=== PATIENT | female | born 1940 | race Caucasian/White ===

== ENCOUNTER 2018-10-12 13:16 | Inpatient (IN) | payer MEDICARE ==
[~2018-10-12] VITALS: Ht 162.6 cm; Wt 98.0 kg
[2018-10-12] MEDS ORDERED: NITROGLYCERIN 2% OINT 1 GM PKT ONE (13:31)
[2018-10-12] MEDS ORDERED: NITROGLYCERIN 2% OINT 1 GM PKT TOP ONE (13:45)
[2018-10-12 14:40] LABS: BILIRUBIN,URINE NEGATIVE (NEGATIVE); CLARITY,URINE SL CLOUDY (CLEAR); COLOR,URINE YELLOW (YELLOW); KETONES,URINE NEGATIVE (NEGATIVE); LEUKOCYTE ESTERASE ,URINE TRACE (NEGATIVE); NITRITE,URINE NEGATIVE (NEGATIVE); PROTEIN,URINE DIPSTICK NEGATIVE (NEGATIVE); URINE UROBILINOGEN 0.2 mg/dL (0.2 - 1)
[2018-10-12 14:52] LABS: RBC,URINE 0-5 /HPF (0-5); RENAL EPITHELIAL CELLS,URINE FEW; WBC,URINE (MAN) 0-5 /HPF (0-5)
--- NOTE | 2018-10-12 15:05 | Diagnostic Imaging Report ---
Examination: Single AP view of the chest. COMPARISON: None. INDICATION: Shortness of breath DISCUSSION: The lungs are well-inflated. Small right pleural effusion with adjacent lower and middle lobe airspace disease, likely atelectasis. Enlargement of the cardiac silhouette with prominence of the perihilar pulmonary interstitium, right greater than left. No acute osseous abnormality. IMPRESSION: Cardiomegaly with findings suggestive of interstitial pulmonary edema and small associated right pleural effusion. Right hilar fullness may reflect asymmetric pulmonary edema; however, a follow-up chest radiograph in 4-6 weeks is suggested to document resolution. Signed by: Dr. Yasir Vidales M.D. on 10/12/2018 3:02 PM
--- NOTE | 2018-10-12 15:22 | NUR ---
NITRO PASTE-- 1" PLACED FOR BP OF 200/139
[2018-10-12 15:30] LABS: BASOPHILS % 0.3 % (0.0-1.0); EOSINOPHILS # (AUTO) 0.1 (0.0-0.4); EOSINOPHILS % 1.2 % (0.0-6.0); HEMATOCRIT 43.9 % (34.2-44.1); LYMPHOCYTES # (AUTO) 0.9 (1.0-3.2); LYMPHOCYTES % 14.1 % (18.0-39.1); MEAN CORPUSCULAR HEMOGLOBIN 31.7 pg (28-32); MEAN CORPUSCULAR HGB CONC 31.9 g/dL (31-35); MEAN CORPUSCULAR VOLUME 99.3 fL (81-99); MONOCYTES # (AUTO) 0.7 (0.2-0.8); MONOCYTES % 9.7 % (4.4-11.3); NEUTROPHILS % 74.3 % (38.7-80.0); PLATELET COUNT 166 x10e3/uL (140-360); RED BLOOD COUNT 4.42 x10e6/uL (3.6-5.1); RED CELL DISTRIBUTION WIDTH 14.8 % (11.7-14.4)
[2018-10-12 15:46] LABS: INR 1.06; PROTHROMBIN TIME 14.3 seconds (11.9-14.5)
[2018-10-12 15:47] LABS: PARTIAL THROMBOPLASTIN TIME 27.4 seconds (23.8-35.5)
[2018-10-12 15:58] LABS: ALBUMIN 3.4 g/dL (3.5-5.0); ALBUMIN/GLOBULIN RATIO 0.8 (0.8-2.0); ANION GAP 13.6 mmol/L (8-16); CALCIUM 9.5 mg/dL (8.4-10.2); CREATININE, SERUM 0.94 mg/dL (0.57-1.11); MAGNESIUM 1.8 MG/DL (1.3-2.1); POTASSIUM 3.6 mmol/L (3.5-5.1)
[2018-10-12] MEDS ORDERED: ENALAPRILAT IV INJ 1.25 MG/ML VIAL IV ONE (16:03)
[2018-10-12 16:05] LABS: CREATINE KINASE MB 1.2 ng/mL (0-5.0)
[2018-10-12] MEDS: ENOXAPARIN SODIUM INJ 100 MG/ML SYR SC SCH ×2 (16:38→17:57)
--- NOTE | 2018-10-12 16:38 | NUR ---
TOLERATING BIPAP VERY WELL. BP STILL ELEVATED. MEDS GIVEN
[2018-10-12] MEDS ORDERED: MORPHINE SULFATE 2 MG/ML SYR 1ML IV PRN (17:00)
[2018-10-12] MEDS ORDERED: ONDANSETRON HCL INJ 2MG/ML 2ML 2 MG/ML VIAL IV PRN (17:00)
--- OUTSIDE RECORDS SUMMARY | 2018-10-12 17:25 | XMS REPORT ---
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 Allergies, Adverse Reactions, Alerts This patient has no known allergies or adverse reactions. Medications This patient has no known medications. Results Test Description Test Time Test Comments Text Results Atomic Results Result Comments CHEST SINGLE (PORTABLE) 2018-10-12 15:00:00 [place] [address] Patient Name: ERASMO AHN MR #: [id number] : 1940 Age/Sex: 78/F Req #: [id number] Adm Physician: Ordered by: EM MARTINEZ MD Report #: [id number] Location: ER Room/Bed: Procedure: [id number] DX/CHEST SINGLE (PORTABLE) Exam Date: 10/12/18 Exam Time: 1440 REPORT STATUS: Signed Examination: Single AP view of the chest. ELISHA RISON: None. INDICATION: Shortness of breath DISCUSSION: The lungs are well-inflated. Small right pleural effusion with adjacent lower and middle lobe airspace disease, likely atelectasis. Enlargement of the cardiac silhouette with prominence of the perihilar pulmonary interstitium, right greater than left. No acute osseous abnormality. IMPRESSION: Cardiomegaly with findings suggestive of interstitial pulmonary edema and small associated right pleural effusion. Right hilar fullness may reflect asymmetric pulmonary edema; however, a follow-up chest radiograph in 4-6 weeks is suggested to document resolution. Signed by: Dr. Barak Muro M.D. on 10/12/2018 3:02 PM Dictated By: BARAK MURO MD 1502 Transcribed By: ZONIA on 10/12/18 1502 COPY TO: EM MARTINEZ MD
[2018-10-12] MEDS ORDERED: MORPHINE SULFATE INJ 4 MG/ML INJ 1ML IV PRN (17:30)
[2018-10-12] MEDS: NITROGLYCERIN/D5W 200 MCG/ML 250 ML IV SCH (17:57)
[2018-10-12] MEDS ORDERED: SODIUM CHLORIDE 0.9% 50ML 50 ML ONE (18:00)
[2018-10-12] MEDS: NITROGLYCERIN 2% OINT 1 GM PKT TOP SCH (18:00)
[2018-10-12] MEDS ORDERED: IOPAMIDOL 370 MG/ML 200 ML INFUS..BTL INJ ONE (18:01)
[2018-10-12] MEDS: FUROSEMIDE INJ 10 MG/ML 4 ML VIAL IV SCH (19:17)
[2018-10-12] MEDS: FAMOTIDINE 20 MG/2 ML VIAL IV SCH (19:18)
[2018-10-12] MEDS: ASPIRIN 81 MG ENTERIC COATED PO SCH (19:18)
[2018-10-12 21:08] VITALS: BP 180/114
--- NOTE | 2018-10-12 21:13 | Diagnostic Imaging Report ---
CT CHEST WITH CONTRAST HISTORY: PE PROTOCOL, shortness of breath COMPARISON: Chest radiograph October 12, 2018 TECHNIQUE: CT scan of the chest WITH intravenous contrast, using PE protocol. The chest was scanned utilizing a multidetector helical scanner from the lung apex through the level of the adrenal glands. Thin section reconstructions were obtained with special concentration on the pulmonary arteries. IV CONTRAST: 80 cc of Isovue-370. PROTOCOL: PE RADIATION DOSE: Total DLP: 583.47 mGy*cm Dose modulation, iterative reconstruction, and/or weight based adjustment of the mA/kV was utilized to reduce the radiation dose to as low as reasonably achievable. COMPLICATIONS: None DISCUSSION: Beam hardening artifacts related to overlying upper extremities partially limits evaluation. Lungs: * Right greater than left atelectasis, most notably the right lower lobe. * Diffusely increased interstitial markings and and mild diffusely increased airspace opacities. Vessels: * Heterogeneously axial contrast partially limits evaluation of the distal pulmonary arteries. * No filling defects are identified within the pulmonary arteries to the segmental levels. * The pulmonary arteries are at the upper limits of normal, likely accentuated by low lung volumes. * Scattered atherosclerotic vascular calcifications, including the coronary arteries. Airways: The major airways are clear. Pleura: Moderate right and trace left low-density pleural effusions. Heart and mediastinum: Moderate to severe global cardiomegaly. Abdomen: Limited evaluation of the upper abdomen. Diffuse parenchymal atrophy of the pancreas. Lymph nodes: No pathologically enlarged lymph node. Bones: Diffusely decreased mineralization of the osseous structures limits bone detail. Soft tissues: Unremarkable IMPRESSION: 1. No evidence of a pulmonary embolus. 2. Findings compatible with volume overload resulting in mild pulmonary edema, moderate right pleural effusion, trace left pleural effusion, and adjacent atelectasis. 3. Coronary atherosclerosis. 4. Diffuse osseous demineralization. Signed by: Dr. Lars Cummings D.O., M.M.M. on 10/12/2018 9:10 PM
[2018-10-12 21:17] VITALS: BP 130/98
[2018-10-12 23:59] VITALS: BP 139/74
[2018-10-13] VITALS (17 sets, daily range): BP systolic 121–167; BP diastolic 76–103
[2018-10-13] MEDS: NITROGLYCERIN 2% OINT 1 GM PKT TOP SCH
--- NOTE | 2018-10-13 03:35 | History and Physical ---
CHIEF COMPLAINT: Shortness of breath and bilateral leg swelling since 5 days. HISTORY OF PRESENT ILLNESS: This is a 78-year-old female with a past medical history of hypertension, hyperlipidemia, anxiety, and bronchial asthma until the patient came to our office today with complaining of shortness of breath and leg edema. The patient was sent to ER. In the ER, they found the patient to have shortness of breath and leg swelling since 5 days. The patient was found to have pulmonary edema. The patient started on IV Lasix and by that, the patient is started getting better, but the patient also noticed to high blood pressure. No headache. No dizziness. No chest pain. No cough. No abdominal pain. No burning urination. No diarrhea. No constipation. No seizures. No focal weakness. ALLERGIES: ALLERGY TO CLARITIN AND SULFA. PAST MEDICAL HISTORY: 1. Anxiety. 2. Hyperlipidemia. 3. Hypertension. 4. Bronchial asthma. PAST SURGICAL HISTORY: Not available. SOCIAL HISTORY: The patient lives with her daughter. HABITS: Denies smoking. Denies alcohol use. Denies illicit drug use. MEDICATIONS: List attached. REVIEW OF SYSTEMS: GENERAL: Denies fatigue or weakness. HEENT: No diplopia or blurred vision. CARDIOPULMONARY: No chest pain, but has shortness of breath. No cough. ALIMENTARY SYSTEM: No nausea. No vomiting. No diarrhea. No constipation. GENITOURINARY SYSTEM: No dysuria. No hematuria. MUSCULOSKELETAL: Has joint pain and bilateral leg edema. CENTRAL NERVOUS SYSTEM: No focal weakness. PHYSICAL EXAMINATION: GENERAL: This is a 78-year-old female, who is alert and oriented x3, mild to moderate distress. VITAL SIGNS: Temperature 97.2, pulse 104, respiratory rate 14, and blood pressure 186/125. HEENT: Head is atraumatic and normocephalic. Pupils bilaterally equal and reactive to light. Extraocular muscles are intact. NECK: Supple. Mild JVD. No carotid bruits. No clubbing. No cyanosis. LUNGS: Air entry decreased breath sounds bilaterally. rhonchi bilaterally. HEART: S1 and S2. Regular rate and rhythm. No S3. No S4 murmur. ABDOMEN: Soft and nontender. No guarding. No rigidity. EXTREMITIES: . RAILROAD HAND: Grossly nonfocal. LABORATORY DATA: Sodium 134. BUN and creatinine normal. Total bilirubin 2.2. BMP 1962. CBC normal. normal. Urine normal. Chest x-ray shows pulmonary edema. EKG shows atrial flutter at 110 per minute, nonspecific ST-T changes. ASSESSMENT: 1. Acute pulmonary edema rule out , rule out congestive heart failure and cardiomyopathy. 2. rule out pulmonary embolism. 3. Uncontrolled hypertension. 4. Hyperlipidemia. 5. Anxiety. 6. History of bronchial asthma. 7. BMP in the morning. IV Lasix 40 daily, subcu Lovenox 100 q.12 hours. PLAN: The Cardiology consult is Dr. Grimes and Dr. Lee. monitor, the patient in ICU cardiopulmonary status. Cardiac enzyme, serial cardiac enzyme. Case discussed with daughter and the patient. Condition and prognosis is guarded. MD CHANDU Figueroa/GUSTAVO /[id number]
[2018-10-13 05:20] LABS: BASOPHILS % 0.1 % (0.0-1.0); EOSINOPHILS % 0.5 % (0.0-6.0); HEMATOCRIT 36.9 % (34.2-44.1); LYMPHOCYTES # (AUTO) 1.2 (1.0-3.2); LYMPHOCYTES % 15.6 % (18.0-39.1); MEAN CORPUSCULAR HGB CONC 33.1 g/dL (31-35); MEAN CORPUSCULAR VOLUME 96.9 fL (81-99); MONOCYTES % 12.2 % (4.4-11.3); NEUTROPHILS # (AUTO) 5.6 (2.1-6.9); NEUTROPHILS % 71.2 % (38.7-80.0); PLATELET COUNT 172 x10e3/uL (140-360); RED BLOOD COUNT 3.81 x10e6/uL (3.6-5.1); RED CELL DISTRIBUTION WIDTH 14.7 % (11.7-14.4)
[2018-10-13 05:40] LABS: ALANINE AMINOTRANSFERASE 11 IU/L (0-55); ALBUMIN/GLOBULIN RATIO 0.8 (0.8-2.0); ALKALINE PHOSPHATASE 102 IU/L (40-150); ANION GAP 14.6 mmol/L (8-16); BLOOD UREA NITROGEN 18 mg/dL (7-26); BUN/CREATININE RATIO 20 (6-25); CARBON DIOXIDE 25 mmol/L (22-29); CHLORIDE 102 mmol/L (98-107); CHOL/HDL RATIO 4.2 (3.0-3.6); CHOLESTEROL 131 MD/DL (0-199); EST GLOMERULAR FILTRATION RATE > 60 ML/MIN (60-); GLUCOSE 99 mg/dL (74-118); HDL CHOLESTEROL 31 MG/DL (40-60); LDL CHOLESTEROL 87 MG/DL (60-130); POTASSIUM 3.6 mmol/L (3.5-5.1); SODIUM 138 mmol/L (136-145); TRIGLYCERIDES 66 MG/DL (0-149)
[2018-10-13 05:42] LABS: HEMOGLOBIN 12.2 g/dL (12.0-16.0)
[2018-10-13] MEDS: FUROSEMIDE INJ 10 MG/ML 4 ML VIAL IV SCH ×3 (07:13→22:43)
[2018-10-13] MEDS: FAMOTIDINE 20 MG/2 ML VIAL IV SCH ×2 (07:14→17:37)
[2018-10-13 08:09] LABS: CREATINE KINASE MB 1.4 ng/mL (0-5.0)
[2018-10-13] MEDS ORDERED: ASPIR 8181 MG (09:59)
[2018-10-13] MEDS ORDERED: ALPRAZOLAM0.25 MG PO (09:59)
[2018-10-13] MEDS ORDERED: CARVEDILOL12.5 MG PO (09:59)
[2018-10-13] MEDS ORDERED: CITALOPRAM HBR20 MG PO (09:59)
[2018-10-13] MEDS: ASPIRIN 81 MG ENTERIC COATED PO SCH (11:36)
[2018-10-13] MEDS ORDERED: AMIODARONE HCL 360MG 200 ML IV SCH ×2 (13:00→18:00)
[2018-10-13] MEDS ORDERED: AMIODARONE HCL 150MG 100 ML IV SCH (13:00)
[2018-10-13 13:08] LABS: CREATINE KINASE MB 1.8 ng/mL (0-5.0)
[2018-10-13] MEDS: LISINOPRIL 20 MG TAB PO SCH (13:21)
[2018-10-13] MEDS ORDERED: CARVEDILOL 12.5 MG TAB PO SCH ×2 (13:30)
[2018-10-13] MEDS ORDERED: AMIODARONE HCL 100 ML IV ONE (13:30)
--- NOTE | 2018-10-13 13:40 | NUR ---
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 Bilateral Lower Ext. SCDs. RECOMMENDATION: - Continue Moderate PUP - Bilateral Heel Protectors / Offload Heels with Pillows Addendum: 10/13/18 at 1342 by Iggy Clarke RN Amended: Links added.
[2018-10-13] MEDS ORDERED: AMIODARONE 900MG 500 ML IV NR ×2 (13:45→17:30)
[2018-10-13] MEDS: NITROGLYCERIN/D5W 200 MCG/ML 250 ML IV SCH (15:07)
--- NOTE | 2018-10-13 16:09 | NUR ---
Nutrition Screen Note RD Recommendation for Physician: -Continue cardiac diet as ordered -If PO <50% in the next 2 days, rec Ensure Compact BID to increase protein-calorie intake Plan of Care: RD following, monitoring for tolerance and adequacy, diet education Nutrition reason for involvement: Nutrition Risk Trigger MST Primary Diagnose(s): acute pulmonary edema, CHF PMH: 1. Anxiety. 2. Hyperlipidemia. 3. Hypertension. 4. Bronchial asthma. Ht: 63in Wt: 218lb BMI: 38.7kg/m2 IBW: 115lb RD Assessment: (10/13) Chart reviewed. Labs and meds reviewed. 78yo F, who was admitted for SOB and BLE swelling. Currently on diuretics. Pt reported poor appetite for over a month. Unknown weight loss due to fluids retention. UBW 199-215lbs. No physical sign of muscle or fat loss upon observation. Pt denied any nausea or vomiting. Pt has some missing teeth and like her food to be chopped; RD entered texture modification in HT. No swallowing difficulty. Discussed with pt that she will regain appetite when swelling decreased; if PO continues to be poor in the next 2 days, will rec Ensure Compact BID. RD also provided diet education on CHF and pt was agreeable with plan. Will continue to monitor and follow. Current Diet: cardiac diet Malnutrition Evaluation (10/13) The patient does not meet criteria for a specified degree of malnutrition at this time. Will re-evaluate at follow-up as appropriate. Diet Education Needs Assessment: Diet education indicated, pt was agreeable with plan. Learner(s): pt Time spent: 20minutes Barriers: No barriers identified. Cultural/Language Modifications: No cultural/language modifications noted. Pt speaks French. Readiness: Acceptance Method: Handouts, explanation Topics: Heart failure nutrition therapy (low sodium, fluid restriction, weight management) Understanding/Compliance: Expect fair understanding/compliance from pt. Will benefit from reinforcement. All questions have been answered. Nutrition Care Level: low Signed: Maria C Avitia, , RD, LD
[2018-10-13] MEDS: ALPRAZOLAM 0.25 MG TAB PO SCH (16:50)
[2018-10-13] MEDS: ENOXAPARIN SODIUM INJ 100 MG/ML SYR SC SCH (16:50)
[2018-10-13] MEDS ORDERED: AMIODARONE 900MG 500 ML IV SCH (20:00)
[2018-10-13] MEDS: CARVEDILOL 12.5 MG TAB PO SCH (20:37)
[2018-10-14] VITALS (28 sets, daily range): BP systolic 82–157; BP diastolic 48–105
--- NOTE | 2018-10-14 00:18 | NUR ---
placed on bipap by rt
--- NOTE | 2018-10-14 00:51 | Consultation ---
DATE OF CONSULTATION: 10/13/2018 Cardiology Progress Note REASON FOR CONSULT: Acute CHF exacerbation and atrial fibrillation with RVR. CHIEF COMPLAINT: Shortness of breath and lower extremity edema. HISTORY OF PRESENT ILLNESS: The patient is a 78-year-old female with history of hypertension, who has been having worsening shortness of breath for the past several weeks as well as worsening lower extremity edema, orthopnea and PND. She finally presented to her primary care's office where she was noted to be volume overloaded as well as tachycardic, was sent to the ER, was found to be in atrial flutter with RVR. Denies any chest pain. No prior history of cardiovascular disease. No history of rheumatic fever. PAST MEDICAL HISTORY: As above, otherwise negative. SOCIAL HISTORY: The patient does not smoke, drink, or abuse drugs. FAMILY HISTORY: Brother had [place] in his 50s, otherwise noncontributory. REVIEW OF SYSTEMS: As per HPI, otherwise negative. OUTPATIENT MEDICATIONS: Reviewed. PHYSICAL EXAMINATION: VITAL SIGNS: Temperature 98.2, pulse 127, respiratory rate 18, blood pressure 152/95, saturating 97% on 3 L nasal cannula. GENERAL: Elderly white female, in no acute distress, well developed, well nourished. CARDIOVASCULAR: Tachycardic, irregular. No murmurs, but difficult to auscultate due to tachycardia. Palpable carotid pulses. Palpable radial pulses, 2+ lower extremity edema. LOWER EXTREMITIES: Warm and well perfused. No ulcers. LUNGS: Crackles at bilateral bases. ABDOMEN: Soft, nontender, nondistended. NEURO AND PSYCH: Alert and oriented to person, place, and time. Normal affect. INPATIENT MEDICATIONS: Reviewed. LABORATORY DATA: Reviewed, notable for hemoglobin of 12.2. BNP of 1962, mildly elevated troponin of 0.35 with normal CK and CK-MB. IMAGING DATA: Reviewed. Chest CT showed no evidence of pulmonary embolism, pulmonary edema, coronary atherosclerosis. Echocardiogram reviewed, shows severely calcified mitral valve, biatrial enlargement, severely reduced LV ejection fraction of 25-30%. ASSESSMENT AND PLAN: 1. Acute systolic heart failure exacerbation. 2. Atrial flutter with rapid ventricular response. 3. Coronary atherosclerosis based on CT scan. PLAN: Start IV amiodarone for rate control for atrial flutter as well as carvedilol and lisinopril for control of her hypertension, so IV nitroglycerin can be titrated off. We will plan for FAITH cardioversion tomorrow. Continue full dose Lovenox. Once patient has been converted into sinus rhythm, the patient will need an ischemic workup for her reduced EF. MD MARYANNE Sweet/GUSTAVO /[id number]
[2018-10-14] MEDS: FAMOTIDINE 20 MG/2 ML VIAL IV SCH ×2 (05:00→17:18)
[2018-10-14] MEDS: ENOXAPARIN SODIUM INJ 100 MG/ML SYR SC SCH ×2 (05:00→16:50)
[2018-10-14] MEDS: FUROSEMIDE INJ 10 MG/ML 4 ML VIAL IV SCH ×4 (05:00→21:46)
[2018-10-14 05:40] LABS: ANION GAP 12.2 mmol/L (8-16); CALCIUM 8.6 mg/dL (8.4-10.2); CREATININE, SERUM 0.99 mg/dL (0.57-1.11); POTASSIUM 3.2 mmol/L (3.5-5.1)
[2018-10-14 06:04] LABS: FREE T4 (FREE THYROXINE) 1.18 ng/dL (0.9-1.8); THYROID STIMULATING HORMONE 4.434 uIU/mL (0.350-4.940)
[2018-10-14] MEDS ORDERED: AMIODARONE 900MG 500 ML IV ONE (06:18)
[2018-10-14] MEDS: NITROGLYCERIN/D5W 200 MCG/ML 250 ML IV SCH (06:26)
--- NOTE | 2018-10-14 07:09 | NUR ---
PT ATTEMPTING TO GET OUT OF BED AT THIS TIME REORIENTED BACK TO BED, PLACED ON BIPAP. WILL CONTINUE TO MONITOR CLOSELY
[2018-10-14] MEDS: POTASSIUM CHLORIDE 20 MEQ TAB CR PO SCH ×2 (08:44→09:00)
[2018-10-14] MEDS: ASPIRIN 81 MG CHEW TAB PO SCH (08:44)
[2018-10-14] MEDS: CARVEDILOL 12.5 MG TAB PO SCH (08:45)
[2018-10-14] MEDS: LISINOPRIL 20 MG TAB PO SCH (08:45)
[2018-10-14] MEDS: ALPRAZOLAM 0.25 MG TAB PO SCH ×2 (08:45→16:48)
[2018-10-14] MEDS ORDERED: CITALOPRAM HYDROBROMIDE 20 MG TAB PO SCH (09:00)
[2018-10-14] MEDS ORDERED: POTASSIUM CHLORIDE 20 MEQ TAB CR PO ONE ×2 (09:30→10:30)
--- NOTE | 2018-10-14 10:15 | Diagnostic Imaging Report ---
Examination: Single AP view of the chest. COMPARISON: 10/12/[address] chest INDICATION: CHF DISCUSSION: Lungs remain reasonably well inflated. Unchanged moderate right pleural effusion with passive atelectasis of the lower lobe. Trace left pleural effusion is also unchanged. Stable cardiomediastinal contour with interstitial prominence. Fullness of the right hilum shown to represent a prominent right superior pulmonary vein on comparison CT. No new consolidations. No acute osseous abnormality. IMPRESSION: Stable findings of volume overload, including interstitial pulmonary edema, moderate right and trace left pleural effusion. Signed by: Dr. Yasir Vidales M.D. on 10/14/2018 10:12 AM
--- NOTE | 2018-10-14 12:40 | NUR ---
PT TAKEN FOR CARDIAC PROCEDURE.
--- NOTE | 2018-10-14 13:20 | NUR ---
Procedure note-FAITH/cardioversion: 1241-patient brought to OR room #7 with anesthesia at bedside. 1250-physician arrives and time out done with all participating staff. All agree. 1251-FAITH probe in 1255-bubble study done on patient. 1257- FAITH probe out. Patient tolerated FAITH well. Anesthesia and physician all agree its ok to proceed with cardioversion at this time. 1258-Defibrillator charged to 120 j and synced. Cardioversion performed and patient converted with one shock to junctional rhythm,rate 40's. Physician at bedside assessing patient. Junctional rhythm,rate 49. 1259-order rec to stop amiodarone until further notice and have 12 lead EKG done when patient back in room. 1301-physician at patient bedside assessing patient. 1307 report called to CANDICE Castellano. Prepped patient for transfer back to ICU room #193 with anesthesia.
--- NOTE | 2018-10-14 14:14 | Progress Note ---
DATE: 10/14/2018 Cardiology Progress Note SUBJECTIVE: No major events overnight. Remains in atrial flutter. Shortness of breath improved. OBJECTIVE: VITAL SIGNS: Temperature 98.3, pulse 119, respiratory rate 22, blood pressure 157/104, and saturating 100% on BiPAP. GENERAL: Elderly female in no acute distress. CARDIOVASCULAR: Tachycardic, irregular. No murmurs. LUNGS: Crackles in bilateral bases. ABDOMEN: Soft, nontender, and nondistended. NEURO AND PSYCH: Alert and oriented to person, place, and time. Normal affect. INPATIENT MEDICATIONS: Reviewed. LABORATORY DATA: Reviewed. IMAGING DATA: Reviewed. ASSESSMENT: 1. Atrial flutter with rapid ventricular response. 2. Acute systolic heart failure exacerbation. 3. Coronary atherosclerosis based on CT scan. 4. Ischemic cardiomyopathy with severely reduced ejection fraction, 25% to 30%. PLAN: Continue IV amiodarone. Plan for cardioversion later today with FAITH. Continue IV Lasix. Once the patient is rate controlled, we will discuss ischemic evaluation. We will continue to up titrate CHF medications. The patient can come off IV nitroglycerin. MD MARYANNE Sweet/GUSTAVO /[id number]
[2018-10-14 15:46] LABS: ABG PCO2 43 mmHg (41-51); ABG PH 7.39 (7.31-7.41); ABG PO2 227 mmHg (80-105)
[2018-10-14 15:47] LABS: ABG HCO3 26 mmol/L (23-28)
--- NOTE | 2018-10-14 15:50 | NUR ---
PT BEING CHANGED AFTER BM, WHEN TURNING PT APPEARED DUSKY AND FRANCO PT CURRENTLY ON BIPAP, RAPID RESPONSE CALLED. ER MD IN ROOM RECEIVED ORDERS WILL CONTINUE TO MONITOR CLOSELY
--- NOTE | 2018-10-14 16:30 | NUR ---
THIS RN NOTIFIED OF RAPID RESPONSE, AND PT LOW BP RECEIVED ORDERS WILL CONTINUE TO MONITOR
--- NOTE | 2018-10-14 17:20 | NUR ---
MD DR. Buddy MACHUCA ROUNDING ON PATIENT DISCUSSED POC WITH FAMILY AND PATIENT, NO QUESTIONS VERBALIZED.
--- NOTE | 2018-10-14 18:34 | Diagnostic Imaging Report ---
A single frontal view of the chest. HISTORY: SOB, CHF, congestive heart failure COMPARISON: Chest radiograph July 17, 2018 DISCUSSION: Portable technique, limits sensitivity of the exam. Soft tissue attenuation partially limits sensitivity of the exam. Overlying monitoring leads and tubes. Tubes/Lines: None Lungs and pleura: Low lung volumes result in bibasilar vascular crowding, accentuation of the pulmonary interstitial markings, central pulmonary vasculature, and the cardiac silhouette. Allowing for these limitations, the findings are as follows: Diffusely increased pulmonary markings. Bibasilar atelectasis. Bilateral lower thoracic component opacities partially obscure the diaphragms. Heart and mediastinum: The cardiac silhouette and central point of vasculature are enlarged. Bones and soft tissues: Appear unremarkable, given this limited exam. IMPRESSION: Findings compatible with volume overload resulting in central pulmonary vascular congestion, mild pulmonary edema, bilateral pleural effusions, and adjacent atelectasis. Signed by: Dr. Lars Cummings D.O., M.M.M. on 10/14/2018 6:31 PM
[2018-10-14] MEDS ORDERED: PROPOFOL IV EMULSION 10 MG/ML 20 ML VIAL ONE (19:21)
[2018-10-15] VITALS (24 sets, daily range): BP systolic 89–202; BP diastolic 54–152
--- NOTE | 2018-10-15 00:17 | NUR ---
patient constantly removing nasal cannula. desats to 85 on room air. patient and i decide maybe a mask would be more comfortable. spoke with respiratory and patient placed on a venti mask at 35%
--- NOTE | 2018-10-15 03:10 | NUR ---
patient converted from junctional rhythm 48 to sinus rhythm 69
[2018-10-15] MEDS: FAMOTIDINE 20 MG/2 ML VIAL IV SCH (05:07)
[2018-10-15] MEDS: FUROSEMIDE INJ 10 MG/ML 4 ML VIAL IV SCH (05:07)
[2018-10-15] MEDS: ENOXAPARIN SODIUM INJ 100 MG/ML SYR SC SCH ×2 (05:07→16:30)
[2018-10-15 05:35] LABS: BASOPHILS % 0.2 % (0.0-1.0); EOSINOPHILS % 0.2 % (0.0-6.0); HEMATOCRIT 38.4 % (34.2-44.1); HEMOGLOBIN 12.9 g/dL (12.0-16.0); LYMPHOCYTES # (AUTO) 1.4 (1.0-3.2); LYMPHOCYTES % 16.4 % (18.0-39.1); MEAN CORPUSCULAR HEMOGLOBIN 32.7 pg (28-32); MEAN CORPUSCULAR HGB CONC 33.6 g/dL (31-35); MEAN CORPUSCULAR VOLUME 97.5 fL (81-99); MONOCYTES # (AUTO) 1.3 (0.2-0.8); MONOCYTES % 14.6 % (4.4-11.3); NEUTROPHILS # (AUTO) 5.9 (2.1-6.9); NEUTROPHILS % 68.1 % (38.7-80.0); PLATELET COUNT 143 x10e3/uL (140-360); RED BLOOD COUNT 3.94 x10e6/uL (3.6-5.1)
[2018-10-15 06:08] LABS: ALBUMIN/GLOBULIN RATIO 0.8 (0.8-2.0); ANION GAP 15.7 mmol/L (8-16); CREATININE, SERUM 2.09 mg/dL (0.57-1.11); POTASSIUM 3.7 mmol/L (3.5-5.1)
[2018-10-15] MEDS: NITROGLYCERIN/D5W 200 MCG/ML 250 ML IV SCH ×2 (06:45→17:45)
[2018-10-15] MEDS: POTASSIUM CHLORIDE 20 MEQ TAB CR PO SCH (09:00)
[2018-10-15] MEDS: ASPIRIN 81 MG CHEW TAB PO SCH (09:00)
[2018-10-15] MEDS: ALPRAZOLAM 0.25 MG TAB PO SCH ×2 (09:00→17:00)
[2018-10-15] MEDS: HYDRALAZINE HCL 20 MG/ML VIAL IV PRN (09:52)
[2018-10-15] MEDS: CARVEDILOL 3.125 MG TAB PO SCH ×2 (10:30→17:00)
[2018-10-15] MEDS: HYDRALAZINE HCL 25 MG TAB PO SCH ×3 (10:30→21:27)
[2018-10-15] MEDS ORDERED: ONDANSETRON HCL 4 MG ORAL DISINTEGRATING TAB PO PRN (11:45)
[2018-10-15] MEDS: FAMOTIDINE 20 MG TAB PO SCH (16:30)
--- NOTE | 2018-10-15 20:46 | Progress Note ---
DATE: 10/15/2018 SUBJECTIVE: She had FAITH cardioversion yesterday, was in junctional rhythm for several hours, but after discontinuing amiodarone and being on dopamine for several hours, sinus rhythm has returned. The patient is feeling much better, off dopamine now. Blood pressure is a little bit elevated. Otherwise, no complaints. OBJECTIVE: VITAL SIGNS: Temperature afebrile, pulse 73, respiratory rate 23, blood pressure 118/58, and saturating 97% on 3 L nasal cannula. GENERAL: Elderly female in no acute distress. CARDIOVASCULAR: Regular rate and rhythm. No murmurs, rubs, or gallops. LUNGS: Clear to auscultation bilaterally. ABDOMEN: Soft, nontender, and nondistended. NEURO AND PSYCH: Alert and oriented to person, place, and time. Normal affect. INPATIENT MEDICATIONS: Reviewed. LABORATORY DATA: Reviewed, notable for a bump in her creatinine today. IMAGING DATA: Reviewed. ASSESSMENT: 1. Atrial flutter with rapid ventricular response, now status post cardioversion. 2. Acute systolic heart failure exacerbation, EF 25% to 30%. 3. Coronary arthrosclerosis based on CT scan findings. 4. Acute kidney injury. PLAN: We will restart very low-dose carvedilol today at 3.125. Hold SAROJ inhibitors given ELIZABETH. We will give her oral hydralazine 25 mg t.i.d. if blood pressure remains elevated. We will stop Lovenox tomorrow morning and start on heparin if creatinine does not return to normal. Still needs ischemic workup prior to discharge given coronary arthrosclerosis on CT scan and severely reduced ejection fraction. Ideally would like to proceed with coronary angiography. However, we will have to await normalization of renal function. We will also need LifeVest on discharge. MD MARYANNE Sweet/GUSTAVO /[id number]
[2018-10-16] VITALS (20 sets, daily range): BP systolic 83–165; BP diastolic 36–110
[2018-10-16] MEDS: ENOXAPARIN SODIUM INJ 100 MG/ML SYR SC SCH (04:17)
[2018-10-16 05:49] LABS: ANION GAP 14.5 mmol/L (8-16); CALCIUM 8.5 mg/dL (8.4-10.2); POTASSIUM 3.5 mmol/L (3.5-5.1)
[2018-10-16 06:10] LABS: CREATININE, SERUM 3.14 mg/dL (0.57-1.11)
[2018-10-16] MEDS: FAMOTIDINE 20 MG TAB PO SCH ×2 (07:30→16:30)
[2018-10-16] MEDS: HYDRALAZINE HCL 25 MG TAB PO SCH ×3 (08:31→20:55)
[2018-10-16] MEDS: ASPIRIN 81 MG CHEW TAB PO SCH (08:31)
[2018-10-16] MEDS: CARVEDILOL 3.125 MG TAB PO SCH (08:32)
[2018-10-16] MEDS: ALPRAZOLAM 0.25 MG TAB PO SCH ×2 (08:32→17:30)
[2018-10-16] MEDS: POTASSIUM CHLORIDE 20 MEQ TAB CR PO SCH (08:33)
--- NOTE | 2018-10-16 14:18 | Progress Note ---
DATE: Cardiology Progress Note SUBJECTIVE: Ginger reports that she feels well this morning. Denies any chest pain. Does endorse some shortness of breath with movement. CARDIOVASCULAR MEDICATIONS: 1. Carvedilol 3.12 mg to 5 mg p.o. b.i.d. 2. Hydralazine 25 mg p.o. t.i.d. 3. Aspirin 81 mg p.o. daily. 4. Hydralazine 10 mg q.4 hours p.r.n. for hypertension. LABORATORY DATA: Sodium 132, potassium 3.5, BUN 36, creatinine 3.14, glucose 95. Telemetry, normal sinus rhythm. No recurrence of junctional rhythm reported since 11 o'clock yesterday. PHYSICAL EXAMINATION: VITAL SIGNS: Temperature 97.4, pulse 70, respiratory rate 18, blood pressure 157/88, oxygen saturation 100% on 4 L nasal cannula. GENERAL: Alert and oriented x3. Resting comfortably in bed, does not appear to be in any acute distress. LUNGS: Diminished breath sounds in anterior lower lobes, otherwise clear to auscultation. No wheezing. No rhonchi or crackles. CARDIOVASCULAR: Regular rate and rhythm. No murmurs, no gallops. ABDOMEN: Soft, nontender. EXTREMITIES: Lower extremity, no edema. 2+ pedal pulses. IMPRESSION: 1. Atrial flutter with rapid ventricular response, now status post cardioversion. 2. Arrhythmia issues with junctional rhythm reported as of yesterday. 3. Acute systolic heart failure exacerbation, ejection fraction 25% to 30%. 4. Coronary artery disease based on CT for worsening kidney disease. PLAN: Nephrology consult. Continue the above cardiac medications. Continue to monitor renal function. This patient will need ischemic workup prior to discharge given coronary atherosclerosis on CT and severely reduced ejection fraction. However, we need to wait for normalization of renal function before we proceed with this. She will also require a LifeVest upon discharge. We will continue to follow very closely. Monitor and maintain on telemetry at all times. Dictated by Yumiko Christianson NP MD GUILLERMO Wu/GUSTAVO /[id number]
--- NOTE | 2018-10-16 14:30 | NUR ---
Physical therapy here to ambulate patient here on ICU unit with walker and she tolerated well. Respirations are even and unlabored. Denies any pain or discomfort. No complaints of dizziness.
[2018-10-16] MEDS ORDERED: DOCUSATE SODIUM 100 MG CAP PO PRN (15:00)
--- NOTE | 2018-10-16 15:35 | NUR ---
Dr. Lee called back in response to my page regarding patient converting to Junctional Rhythm at 12:45pm today with heart rate of 56 and she is asymptomatic. Respirations are even and unlabored and 02 sats are 98% on 02 at 3 liters per nasal cannula. B/P reads 136/65 at 12:00 and then drops to 83/36 at 13:00. Patient denies any chest pain, dizziness or discomfort. New orders received.
--- NOTE | 2018-10-16 18:08 | Diagnostic Imaging Report ---
EXAMINATION: Abdominal ultrasound. CLINICAL INDICATION: Abnormal liver function test COMPARISON: None DISCUSSION: Transverse and longitudinal images of the upper abdomen were obtained. The liver is normal in size measuring 14.4 centimeters in length in the right midclavicular line and shows normal echogenicity. Nodular contour. No focal masses are seen in the liver. There is no intrahepatic biliary dilatation. The common bile duct measures 0.3 cm. The gallbladder is normal in appearance without stones, wall thickening or pericholecystic fluid. The sonographic Rodriguez's sign is negative. The visualized portions of the pancreatic body are unremarkable. The spleen is normal in echogenicity and size measuring 11.4 centimeters in length. The right kidney measures 10.2 centimeters in length and the left kidney measures 11.3 centimeters. There is normal renal cortical echogenicity and no hydronephrosis, solid mass or shadowing calculi. The visualized portions of the great vessels are normal. Right pleural effusion IMPRESSION: Cirrhotic morphology of the liver with nodular contour. Right pleural effusion. Normal gallbladder. Signed by: Dr. Adeel Jean-Baptiste M.D. on 10/16/2018 6:04 PM
[2018-10-16 18:48] LABS: BILIRUBIN,URINE NEGATIVE (NEGATIVE); CLARITY,URINE HAZY (CLEAR); COLOR,URINE YELLOW (YELLOW); KETONES,URINE NEGATIVE (NEGATIVE); LEUKOCYTE ESTERASE ,URINE NEGATIVE (NEGATIVE); NITRITE,URINE NEGATIVE (NEGATIVE); PROTEIN,URINE DIPSTICK 1+ (NEGATIVE); URINE UROBILINOGEN 0.2 mg/dL (0.2 - 1)
[2018-10-16 19:01] LABS: CREATININE,URINE RANDOM 49.14 mg/dL (47-110); SODIUM,URINE 21 mmol/L
[2018-10-16 19:05] LABS: AMORPHOUS SEDIMENT,URINE MANY (FEW); BACTERIA,URINE FEW /HPF; EPITHELIAL CELLS,URINE FEW /LPF
[2018-10-16] MEDS: HEPARIN SOD (PORCINE) 5,000 UNIT/ML VIAL SC SCH (20:58)
[2018-10-17] VITALS (23 sets, daily range): BP systolic 102–157; BP diastolic 46–99
--- NOTE | 2018-10-17 03:11 | Consultation ---
DATE OF CONSULTATION: Renal Consult. REASON FOR CONSULT: Increased creatinine. HISTORY OF PRESENT ILLNESS: This [id number], who was admitted due to shortness of breath and was found to have pulmonary edema and was started on IV Lasix. Also, she had CT scan with contrast to rule out PE. ALLERGIES: CLARITIN AND SULFA. PAST SURGICAL HISTORY: Negative. PAST MEDICAL HISTORY: 1. Anxiety. 2. Obesity. 3. Hypertension. 4. Hyperlipidemia. 5. Bronchial asthma. SOCIAL HISTORY: No smoking. No alcohol. No drugs. FAMILY HISTORY: Noncontributory. REVIEW OF SYSTEMS: Unable to do with the patient, she has BiPAP and she is very hard to understand, but denies any nausea or vomiting. Denies any diarrhea. Denies any chest pain. Denies any shortness of breath. Denies any depression or schizoaffective disorder. All pertinent review of systems were asked and they were negative. PHYSICAL EXAMINATION: GENERAL: Alert and following commands. HEENT: Pupils are equal and reactive to light and accommodation. NECK: No JVD. No bruits. LUNGS: Rhonchi plus rales at the bases. HEART: Regular rate and rhythm. No S3. No S4. ABDOMEN: Nontender and nondistended. No hepatomegaly or splenomegaly. EXTREMITIES: No clubbing, no cyanosis, no edema. NEUROLOGIC: Cranial nerves II through XII are grossly intact. Sensation intact. Motor intact. VITAL SIGNS: Blood pressure 120/75. LABORATORY DATA: Today, sodium 132, potassium 3.5, chloride 96, CO2 of 25, BUN 36, creatinine 3.14, yesterday was 2.09, the day before was 0.9. To note that her contrast was given on the . MEDICATIONS: The patient's current medications include lisinopril, carvedilol, heparin, nitroglycerin, hydralazine, potassium, Zofran, aspirin, famotidine, alprazolam. ASSESSMENT AND PLAN: 1. Multifactorial renal failure including contrast nephropathy, Lasix, SAROJ inhibitor. So for now, we are awaiting final fractional excretion sodium result. We will check urinary eosinophils. We will check C3 and C4, but this is most likely contrast and it should be improving soon I hope. Currently, her urine output is adequate. Creatinine is stable. No hyperkalemia. No metabolic acidosis. So, no dialysis is needed at this time. SAROJ inhibitor is on hold. 2. Systolic congestive heart failure with poor ejection fraction, which can also contribute to renal failure and might cause cardiorenal. 3. Hypertension, currently better. 4. Cardiomyopathy. As above. 5. Obesity. Ty Mckeon MD MA/GUSTAVO /[id number]
[2018-10-17 05:56] LABS: ALBUMIN 2.5 g/dL (3.5-5.0); ALBUMIN/GLOBULIN RATIO 0.8 (0.8-2.0); BILIRUBIN,DIRECT 0.9 mg/dL (0.0-0.5); CALCIUM 8.2 mg/dL (8.4-10.2); CREATININE, SERUM 3.52 mg/dL (0.57-1.11); PHOSPHORUS 3.5 MG/DL (2.3-4.7)
[2018-10-17] MEDS: FAMOTIDINE 20 MG TAB PO SCH ×2 (08:34→15:40)
[2018-10-17] MEDS: POTASSIUM CHLORIDE 20 MEQ TAB CR PO SCH (08:35)
[2018-10-17] MEDS: HYDRALAZINE HCL 25 MG TAB PO SCH ×3 (08:35→20:16)
[2018-10-17] MEDS: ASPIRIN 81 MG CHEW TAB PO SCH (08:35)
[2018-10-17] MEDS: ALPRAZOLAM 0.25 MG TAB PO SCH (08:35)
[2018-10-17] MEDS: HEPARIN SOD (PORCINE) 5,000 UNIT/ML VIAL SC SCH ×2 (08:36→20:16)
--- NOTE | 2018-10-17 14:44 | Progress Note ---
DATE: Cardiology Progress Note SUBJECTIVE: The patient is without any new complaints. She denies any dizziness, chest pain or palpitations. Does endorse some shortness of breath. CARDIOVASCULAR MEDICATIONS: Aspirin 81 mg p.o. daily, hydralazine 25 mg p.o. t.i.d., heparin 5000 units subcu q.12 hours. LABORATORY DATA: Sodium 131, potassium 4.0, BUN 45, creatinine 3.52. Telemetry, junctional rhythm. OBJECTIVE: VITAL SIGNS: Temperature 98.5, pulse 59, respiratory rate 25, blood pressure 120/69, oxygen saturation 98% on 4 L nasal cannula. GENERAL: Alert and oriented x3. Resting comfortably in bed. Does not appear to be in any acute distress. LUNGS: Diminished breath sounds in anterior lower lobes, otherwise clear to auscultation. No wheezing. No rhonchi or crackles. CARDIOVASCULAR: Regular rate and rhythm, systolic murmur present. No gallops. ABDOMEN: Soft, nontender. EXTREMITIES: Lower extremities, no edema. 2+ pedal pulses. IMPRESSION: 1. Atrial fibrillation with rapid ventricular response, now status post cardioversion. 2. Arrhythmia. Issues with junctional rhythm since yesterday. 3. Acute systolic heart failure exacerbation, ejection fraction 25% to 30%. 4. Coronary artery disease based on CT. 5. Worsening kidney disease. RECOMMENDATIONS: Nephrology has been consulted. Continue to monitor renal function closely and electrolyte imbalance. EP consulted due to junctional rhythm and ongoing arrhythmias. Discontinued AV blockade including beta amarjit at this time. Continue the rest of the above listed cardiac medication. This patient will need ischemic workup prior to discharge given coronary atherosclerosis on CT and severely reduced ejection fraction. However, we will need to wait on normalization of renal function before we can proceed with this. She will also require a LifeVest prior to discharge. We will continue to monitor this patient very closely. Dictated by Yumiko Christianson, HAYES MD SHERWIN WuV/JUHIL /[id number]
[2018-10-17] MEDS ORDERED: ALPRAZOLAM 0.25 MG TAB PO PRN (15:00)
--- NOTE | 2018-10-17 17:44 | Consultation ---
DATE OF CONSULTATION: CHIEF COMPLAINT: Elevated bilirubin. HISTORY OF PRESENT ILLNESS: Very pleasant 78-year-old lady, admitted to the hospital with congestive heart failure. Consulted due to bilirubin of 2.3, LFTs are otherwise normal. Ultrasound did not show any obstruction or liver masses. She denies abdominal pain. PAST MEDICAL HISTORY: Heart disease and hypertension. PAST SURGICAL HISTORY: See old records. FAMILY HISTORY: Noncontributory. MEDICATIONS: Amiodarone. Other medications, see list. ALLERGIES: NOT SIGNIFICANT EXCEPT FOR SULFA DRUGS AND LORATADINE. REVIEW OF SYSTEMS: The patient has some mild shortness of breath, otherwise negative. PHYSICAL EXAMINATION: VITAL SIGNS: Blood pressure 110/80, pulse 80, and temperature 98.7. GENERAL: Well-nourished white lady in no distress. HEENT: No pallor. ABDOMEN: Soft, nontender. EXTREMITIES: No edema. NEUROLOGIC: No focal. ASSESSMENT AND PLAN: Mild elevation of the bilirubin. Otherwise, labs are normal. Findings consistent with liver congestion secondary to congestive heart failure at the present time. Underlying illness with improved symptoms. No need for any further workup at the present time. We will the patient with you. MD PEPE FooteO/MODL /[id number]
--- NOTE | 2018-10-17 20:00 | NUR ---
Pt frequently removing oxygen and desating with pulse oximetry. Dr Chavez requested change of transfer to an [facility] bed and wait until morning for the transfer. Addendum: 10/18/18 at 0656 by Chris Ortiz RN Dr Chavez was notified of pt's behavior and constantly removing her oxygen tubing and desating with close monitoring while in the ICU.
[2018-10-18] VITALS (23 sets, daily range): BP systolic 97–189; BP diastolic 52–132
[2018-10-18] MEDS: HYDRALAZINE HCL 20 MG/ML VIAL IV PRN ×2 (02:33→11:00)
[2018-10-18 05:10] LABS: BASOPHILS % 0.2 % (0.0-1.0); EOSINOPHILS # (AUTO) 0.1 (0.0-0.4); EOSINOPHILS % 0.8 % (0.0-6.0); HEMATOCRIT 36.7 % (34.2-44.1); HEMOGLOBIN 12.3 g/dL (12.0-16.0); LYMPHOCYTES # (AUTO) 0.9 (1.0-3.2); LYMPHOCYTES % 10.3 % (18.0-39.1); MEAN CORPUSCULAR HEMOGLOBIN 32.4 pg (28-32); MEAN CORPUSCULAR HGB CONC 33.5 g/dL (31-35); MEAN CORPUSCULAR VOLUME 96.6 fL (81-99); MONOCYTES # (AUTO) 1.5 (0.2-0.8); MONOCYTES % 17.3 % (4.4-11.3); NEUTROPHILS # (AUTO) 6.3 (2.1-6.9); NEUTROPHILS % 70.9 % (38.7-80.0); PLATELET COUNT 179 x10e3/uL (140-360)
[2018-10-18 05:44] LABS: ALBUMIN 2.7 g/dL (3.5-5.0); ALBUMIN/GLOBULIN RATIO 0.7 (0.8-2.0); ANION GAP 14.5 mmol/L (8-16); CALCIUM 8.6 mg/dL (8.4-10.2); CREATININE, SERUM 3.59 mg/dL (0.57-1.11); POTASSIUM 4.5 mmol/L (3.5-5.1)
--- NOTE | 2018-10-18 06:46 | NUR ---
Called answering service to notify of pacemaker consult. Spoke with
[2018-10-18] MEDS: HEPARIN SOD (PORCINE) 5,000 UNIT/ML VIAL SC SCH ×2 (07:54→21:02)
[2018-10-18] MEDS: HYDRALAZINE HCL 25 MG TAB PO SCH ×3 (09:00→21:01)
[2018-10-18] MEDS: ASPIRIN 81 MG CHEW TAB PO SCH (09:00)
--- NOTE | 2018-10-18 10:11 | Diagnostic Imaging Report ---
EXAMINATION: CHEST 2 VIEWS INDICATION: CHF follow-up. COMPARISON: Chest radiograph 10/14/2018. FINDINGS: TUBES and LINES: None. LUNGS: Low lung volumes which decreases sensitivity and specificity for pathology. There are patchy opacities at the lung bases bilaterally. There is perihilar fullness and indistinctness of the pulmonary vasculature. PLEURA: Small bilateral pleural effusions. No evidence of pneumothorax. HEART AND MEDIASTINUM: The cardiomediastinal silhouette is mildly enlarged. Atherosclerotic calcifications of the aortic arch. BONES/SOFT TISSUES: No acute osseous abnormality. UPPER ABDOMEN: No free air under the diaphragm. IMPRESSION: Similar appearance of mild pulmonary interstitial edema with small bilateral pleural effusions and patchy bibasilar opacities, likely atelectasis. Signed by: Dr. Lonnie Paiz MD on 10/18/2018 10:07 AM
[2018-10-18] MEDS: FAMOTIDINE 20 MG TAB PO SCH ×2 (11:28→17:55)
[2018-10-18] MEDS: POTASSIUM CHLORIDE 20 MEQ TAB CR PO SCH (11:35)
[2018-10-18 13:33] LABS: ANISOCYTOSIS SLIGHT; HYPOCHROMASIA SLIGHT; LYMPHOCYTES % (MANUAL) 10 % (19-48); MONOCYTES % (MANUAL) 15 % (3.4-9.0); MYELOCYTES % (MANUAL) 2 % (0-0); NEUTROPHILS % (MANUAL) 73 % (40-74); PLATELET ESTIMATE ADEQUATE; POIKILOCYTOSIS SLIGHT; RBC MORPHOLOGY COMMENT NORMAL
[2018-10-18 13:34] LABS: PLATELET MORPHOLOGY COMMENT FEW GIANT
--- NOTE | 2018-10-18 13:50 | NUR ---
Per conversation with patient, her daughter, Dr Scott Lu, finishing lab technician, and bedside RN, per daughter and patient they wish to be a full DNR.
--- NOTE | 2018-10-18 18:57 | NUR ---
Bedside report to CANDICE Arriaga.
--- NOTE | 2018-10-18 20:59 | Progress Note ---
DATE: 10/18/2018 Cardiology Progress Note SUBJECTIVE: No major events overnight. OBJECTIVE: VITAL SIGNS: Temperature afebrile, pulse 74, respiratory rate 22, blood pressure 165/83, saturating 99% on 2 L nasal cannula. GENERAL: Elderly white female, in no acute distress. CARDIOVASCULAR: Regular rate and rhythm. No murmurs, rubs, or gallops. LUNGS: Coarse at the bases bilaterally. ABDOMEN: Soft, nontender, nondistended. NEURO AND PSYCH: Intact, alert, and oriented to person, place, and time. INPATIENT MEDICATIONS: Reviewed. LABORATORY DATA: Reviewed. IMAGING DATA: Reviewed. Chest x-ray shows mild pulmonary edema, bilateral pleural effusions and atelectasis. TELEMETRY DATA: Reviewed. The patient is in out of junctional rhythm. ASSESSMENT/PLAN: 1. Atrial flutter with rapid ventricular response, status post cardioversion. 2. Intermittent junctional rhythm with sinus node dysfunction post cardioversion. 3. Acute systolic heart failure exacerbation, ejection fraction of 25% to 30%. 4. Coronary artery disease based on CT scan. 5. Acute kidney injury. PLAN: Had a long discussion with the patient and her daughter today, although we recommended pacemaker given intermittent junctional bradycardia since her cardioversion despite being off beta blockers and amiodarone. The patient does not want pacemaker and wants to be DNR/DNI. She is okay with continuing her medical therapy, however, most likely wants to go home on hospice. I had a long conversation regarding heart failure in fact improved in arrhythmias better controlled and pacemaker will help stabilize the rhythm issues and itself to pose any immediate risks to the patient. The patient and daughter understanding that there is no immediate life-threatening issues with her cardiac condition and may be managed well with medications however they insist that they want her to be DNR/DNI and do not want to proceed with more invasive procedures or options. They know that junctional bradycardia may be degenerated into asystole and can cause her and timing of this is unpredictable. We will continue to manage medically as long as they desire, but for now they wanted to be DNR/DNI. Thank you for this consult. We will continue to follow. MD MARYANNE Sweet/MODL /[id number]
[2018-10-18] MEDS: FUROSEMIDE INJ 10 MG/ML 4 ML VIAL IV SCH (21:00)
[2018-10-19] VITALS (8 sets, daily range): BP systolic 118–171; BP diastolic 52–81
[2018-10-19] MEDS: HYDRALAZINE HCL 20 MG/ML VIAL IV PRN (04:55)
[2018-10-19 05:39] LABS: ALBUMIN 2.6 g/dL (3.5-5.0); ALBUMIN/GLOBULIN RATIO 0.7 (0.8-2.0); ANION GAP 15.2 mmol/L (8-16); CALCIUM 8.9 mg/dL (8.4-10.2); CREATININE, SERUM 2.95 mg/dL (0.57-1.11); POTASSIUM 4.2 mmol/L (3.5-5.1)
--- NOTE | 2018-10-19 07:00 | NUR ---
reports given to upcoming nurse.
--- NOTE | 2018-10-19 07:25 | NUR ---
Pt received from previous shift resting in bed. Alert and oriented x2-3 with saline lock patent to left hand. Noted bruising to abdomen, and inner thighs. Pt has purewick to suction. Oriented to staff and surrounding. Advised to press call ortiz if help needed. Will monitor
[2018-10-19] MEDS: FUROSEMIDE INJ 10 MG/ML 4 ML VIAL IV SCH ×2 (08:55→20:13)
[2018-10-19] MEDS: FAMOTIDINE 20 MG TAB PO SCH ×2 (08:55→16:05)
[2018-10-19] MEDS: HYDRALAZINE HCL 25 MG TAB PO SCH ×3 (08:55→20:14)
--- NOTE | 2018-10-19 08:55 | NUR ---
All meds given as ordered. Call ortiz within reach. Pt's daughter called, and stated that she wants to talk to someone regarding Hospice. manufacturing worker notified. Will follow up
[2018-10-19] MEDS: ASPIRIN 81 MG CHEW TAB PO SCH (08:56)
[2018-10-19] MEDS: HEPARIN SOD (PORCINE) 5,000 UNIT/ML VIAL SC SCH ×2 (08:57→20:08)
--- NOTE | 2018-10-19 11:50 | NUR ---
SPOKE WITH DAUGHTER NEHA SHE STATES HER MOTHER DOES NOT WANT ANY EXTRAORDINARY MEASURES, PT'S AND SON HAVE BOTH PASSED AND USED HOSPICE. STATES THEY WERE NOT LOCAL. OFFERED TO SET UP MEETINGS WITH [facility] AND [facility] TO GET FURTHER INFORMATION, GAVE CONSENT VIA PHONE TO SPEAK WITH KARINA FROM [facility]. SHE STATES SHE WILL LET ME KNOW IF SHE WANTS TO MEET WITH [facility] AFTER THAT CALL.
--- NOTE | 2018-10-19 12:58 | NUR ---
MET WITH CM, PT, PT DAUGHTER AND MD. DOCTOR WANTS TO PURSUE AN AGGRESSIVE APPROACH, DAUGHTER BECAME UPSET AND CONCERNED THAT PT WOULD NOT BE ABLE OT GO TO A FACILITY UNDER HOSPICE CARE IF SHE DOES NOT AGREE TO THE SKILLED SERVICES. EDUCATED THE PT RIGHTS COME FIRST AND IF SHE WANTS TO HAVE MEETING WITH HOSPICE COMPANIES TO GET EDUCATION AND PLACEMENT I WOULD HELP HER MAKE THAT HAPPEN. SHE WILL BE MEETING WITH KARINA FROM [facility] AT APPROXIMATELY 1:15 TODAY. DAUGHTER NEHA WILL LET ME KNOW IF THAT IS THE AVENUE SHE IS WILLING TO GO AND IF SHE WANTS TO MEET WITH ANOTHER COMPANY. RHINA SPOKE WITH AGAIN WHOM GAVE ORDER FOR HOSPICE CONSULT.
--- NOTE | 2018-10-19 15:48 | NUR ---
DAUGHTER LOOKING AT 3 FACILITIES AND A SNF TO BE ABLE TO GET ROOM AND BOARD FOR THE APPROXIMATE $3K A MONTH. WILL FOLLOW UP WHEN SHE DECIDES ON WHICH ROUTE SHE IS GOING
--- NOTE | 2018-10-19 17:24 | Progress Note ---
DATE: 10/19/2018 Cardiology Progress Note SUBJECTIVE: No major events overnight. OBJECTIVE: VITAL SIGNS: Temperature afebrile, pulse 82, respiratory rate 24, blood pressure 171/68, and saturating 100% on 2 L nasal cannula. GENERAL: Elderly female, in no acute distress. CARDIOVASCULAR: Regular rate and rhythm. No murmurs, rubs, or gallops. LUNGS: Crackles bilateral bases. ABDOMEN: Soft, nontender, nondistended. NEURO AND PSYCH: Alert and oriented x2. INPATIENT MEDICATIONS: Reviewed. LABORATORY DATA: Reviewed. TELEMETRY DATA: Reviewed, shows a mix of sinus and junctional rhythm. ASSESSMENT: 1. Atrial flutter with rapid ventricular response, status post cardioversion. 2. Intermittent junctional rhythm and sinus node dysfunction post cardioversion. 3. Acute systolic heart failure exacerbation, ejection fraction of 25% to 30%. 4. Acute coronary artery disease based on CT scan. 5. Acute kidney injury. PLAN: The patient is now DNR/DNI. We will continue medical therapy. Blood pressure a little elevated today, we will increase hydralazine if it remains elevated by tomorrow. Avoid beta-blockers. No SAROJ inhibitors given acute kidney injury. Renal function is slightly improved from yesterday. Ideally would necessitate a heart catheterization given low EF and coronary artery disease on CT scan; however, now the patient is DNR/DNI and does not want any invasive procedures. We will continue medical therapy. Thank you for this consult. We will continue to follow. MD NILES SweetP/MODL /[id number]
[2018-10-20] VITALS (7 sets, daily range): BP systolic 130–157; BP diastolic 46–75
[2018-10-20 04:55] LABS: BASOPHILS % 0.1 % (0.0-1.0); EOSINOPHILS % 0.3 % (0.0-6.0); HEMATOCRIT 30.4 % (34.2-44.1); LYMPHOCYTES # (AUTO) 0.9 (1.0-3.2); LYMPHOCYTES % 7.5 % (18.0-39.1); MEAN CORPUSCULAR HEMOGLOBIN 32.2 pg (28-32); MEAN CORPUSCULAR HGB CONC 32.9 g/dL (31-35); MEAN CORPUSCULAR VOLUME 97.7 fL (81-99); MONOCYTES # (AUTO) 1.7 (0.2-0.8); MONOCYTES % 14.9 % (4.4-11.3); NEUTROPHILS # (AUTO) 8.9 (2.1-6.9); NEUTROPHILS % 76.6 % (38.7-80.0); PLATELET COUNT 186 x10e3/uL (140-360); RED BLOOD COUNT 3.11 x10e6/uL (3.6-5.1); RED CELL DISTRIBUTION WIDTH 14.9 % (11.7-14.4)
[2018-10-20 05:25] LABS: ALBUMIN 2.1 g/dL (3.5-5.0); ALBUMIN/GLOBULIN RATIO 0.6 (0.8-2.0); ANION GAP 12.5 mmol/L (8-16); CALCIUM 8.4 mg/dL (8.4-10.2); CREATININE, SERUM 2.45 mg/dL (0.57-1.11); POTASSIUM 3.5 mmol/L (3.5-5.1)
--- NOTE | 2018-10-20 06:58 | NUR ---
Walking rounds done. Patient is awake and alertx2. Patient did not know time of day. POC discussed. Patient instructed to call for assistance as needed and verbalized understanding. Call ortiz within reach.
[2018-10-20] MEDS: FAMOTIDINE 20 MG TAB PO SCH ×2 (08:23→16:16)
[2018-10-20] MEDS: FUROSEMIDE INJ 10 MG/ML 4 ML VIAL IV SCH ×2 (08:23→21:00)
[2018-10-20] MEDS: ASPIRIN 81 MG CHEW TAB PO SCH (08:24)
[2018-10-20] MEDS: HYDRALAZINE HCL 25 MG TAB PO SCH ×3 (08:24→21:00)
[2018-10-20] MEDS: HEPARIN SOD (PORCINE) 5,000 UNIT/ML VIAL SC SCH ×2 (08:26→21:00)
--- NOTE | 2018-10-20 09:30 | NUR ---
Patient turned and repositioned.
[2018-10-20 10:02] LABS: ANISOCYTOSIS SLIGHT; HYPOCHROMASIA SLIGHT; LYMPHOCYTES % (MANUAL) 6 % (19-48); MONOCYTES % (MANUAL) 11 % (3.4-9.0); NEUTROPHILS % (MANUAL) 83 % (40-74); PLATELET ESTIMATE ADEQUATE; PLATELET MORPHOLOGY COMMENT NORMAL; RBC MORPHOLOGY COMMENT NORMAL
--- NOTE | 2018-10-20 13:00 | NUR ---
Daughter at the bedside. Patient without any complaints voiced. call ortiz within reach.
--- NOTE | 2018-10-20 14:50 | NUR ---
Nutrition Screen Note RD Recommendation for Physician: - Continue diet as ordered - Further nutrition intervention is not warranted at this time. RD signs off per hospice status. Consult if status of care changed. Plan of Care: RD following, monitoring for tolerance and adequacy, diet education Nutrition reason for involvement: Follow up Primary Diagnose(s): acute pulmonary edema, CHF PMH: 1. Anxiety. 2. Hyperlipidemia. 3. Hypertension. 4. Bronchial asthma. Ht: 63in Wt: 218lb BMI: 38.7kg/m2 IBW: 115lb RD Assessment: (10/20) Pt was discussed during AM rounds. Confirmed hospice status. Visited pt in the room. Pt reported good appetite with 75-100% recorded meal intake. No GI complains reported at this time. RD signs off per hospice status. (10/13) Chart reviewed. Labs and meds reviewed. 78yo F, who was admitted for SOB and BLE swelling. Currently on diuretics. Pt reported poor appetite for over a month. Unknown weight loss due to fluids retention. UBW 199-215lbs. No physical sign of muscle or fat loss upon observation. Pt denied any nausea or vomiting. Pt has some missing teeth and like her food to be chopped; RD entered texture modification in HT. No swallowing difficulty. Discussed with pt that she will regain appetite when swelling decreased; if PO continues to be poor in the next 2 days, will rec Ensure Compact BID. RD also provided diet education on CHF and pt was agreeable with plan. Will continue to monitor and follow. Current Diet: cardiac diet Malnutrition Evaluation (10/13) The patient does not meet criteria for a specified degree of malnutrition at this time. Will re-evaluate at follow-up as appropriate. Diet Education Needs Assessment: 10/13: Diet education indicated, pt was agreeable with plan. Learner(s): pt Time spent: 20minutes Barriers: No barriers identified. Cultural/Language Modifications: No cultural/language modifications noted. Pt speaks Arabic. Readiness: Acceptance Method: Handouts, explanation Topics: Heart failure nutrition therapy (low sodium, fluid restriction, weight management) Understanding/Compliance: Expect fair understanding/compliance from pt. Will benefit from reinforcement. All questions have been answered. Nutrition Care Level: low Signed: Maria C Avitia, MS, RD, LD
--- NOTE | 2018-10-20 15:50 | NUR ---
EDUCATED ABOUT IMM, SIGNED, FILED IN CHART, WITH COPY LEFT WITH FAMILY AT BEDSIDE. PT TO GO TO [facility] IN MORNING.
--- NOTE | 2018-10-20 18:50 | NUR ---
Walking rounds done and report given to oncoming nurse. Call ortiz within reach.
--- NOTE | 2018-10-20 19:00 | NUR ---
patient received awake, alert, lying quietly in bed. vss. no c/o pain noted. respirations even and unlabored. 02/2l/nc in use. patient turned and repositioned for comfort. purewick continues to drain clear delia urine without difficulty. pm assessment complete. family noted at the bedside. patient/family instructed to call for assistance when needed.
--- NOTE | 2018-10-20 19:20 | Progress Note ---
DATE: 10/20/2018 Cardiology Progress Note SUBJECTIVE: No major events overnight. OBJECTIVE: VITAL SIGNS: Temperature afebrile, pulse 83, respiratory rate 18, blood pressure 130/56, and saturating 99% on 2 L nasal cannula. GENERAL: Elderly female in no acute distress. CARDIOVASCULAR: Regular rate and rhythm. No murmurs, rubs, or gallops. LUNGS: Crackles in bilateral bases, improving. ABDOMEN: Soft, nontender, and nondistended. NEURO AND PSYCH: Alert, oriented to person, place, and time. INPATIENT MEDICATIONS: Reviewed. LABORATORY DATA: Reviewed. Creatinine today improving to 2.45. TELEMETRY DATA: Reviewed. The patient is now back in sinus rhythm. ASSESSMENT: 1. Atrial flutter with rapid ventricular response, status post cardioversion. 2. Intermittent junctional rhythm and sinus node dysfunction post cardioversion. 3. Acute systolic heart failure exacerbation, ejection fraction of 25% to 30%. 4. Acute coronary artery disease based on CT scan. 5. Acute kidney injury. PLAN: The patient remains DNR/DNI. Continue current medical therapy. No plan for coronary angiography given her DNR status. Thank you for this consult. We will continue to follow. MD MARYANNE Sweet/GUSTAVO /[id number]
--- NOTE | 2018-10-20 23:00 | NUR ---
Bath/skin care provided at this time. patient turned and repositioned for comfort. no c/o pain noted at this time.
--- NOTE | 2018-10-21 00:30 | NUR ---
care of this patient taken over by Elias Bishop RN. report given at this time.
[2018-10-21 04:19] VITALS: BP 150/58
[2018-10-21 05:05] LABS: BASOPHILS % 0.2 % (0.0-1.0); EOSINOPHILS # (AUTO) 0.1 (0.0-0.4); EOSINOPHILS % 1.1 % (0.0-6.0); HEMATOCRIT 31.6 % (34.2-44.1); HEMOGLOBIN 10.2 g/dL (12.0-16.0); LYMPHOCYTES # (AUTO) 1.2 (1.0-3.2); MEAN CORPUSCULAR HEMOGLOBIN 31.7 pg (28-32); MEAN CORPUSCULAR HGB CONC 32.3 g/dL (31-35); MEAN CORPUSCULAR VOLUME 98.1 fL (81-99); MONOCYTES # (AUTO) 1.4 (0.2-0.8); NEUTROPHILS # (AUTO) 7.1 (2.1-6.9); NEUTROPHILS % 72.3 % (38.7-80.0); PLATELET COUNT 218 x10e3/uL (140-360); RED BLOOD COUNT 3.22 x10e6/uL (3.6-5.1); RED CELL DISTRIBUTION WIDTH 14.6 % (11.7-14.4)
[2018-10-21 05:22] LABS: ANION GAP 13.1 mmol/L (8-16); CALCIUM 8.6 mg/dL (8.4-10.2); CREATININE, SERUM 1.82 mg/dL (0.57-1.11); POTASSIUM 3.1 mmol/L (3.5-5.1)
--- NOTE | 2018-10-21 07:01 | NUR ---
Report given to oncoming RN Stephanie,walking round done.
[2018-10-21] MEDS: FAMOTIDINE 20 MG TAB PO SCH ×2 (07:44→16:14)
[2018-10-21 07:45] VITALS: BP_SYST 115; BP_SYST 150; BP_DIAS 57; BP_DIAS 58
[2018-10-21] MEDS ORDERED: POTASSIUM CHLORIDE 20 MEQ TAB CR PO NR (08:00)
[2018-10-21] MEDS: ASPIRIN 81 MG CHEW TAB PO SCH (08:01)
[2018-10-21] MEDS: FUROSEMIDE INJ 10 MG/ML 4 ML VIAL IV SCH (08:01)
[2018-10-21] MEDS: HYDRALAZINE HCL 25 MG TAB PO SCH (08:01)
[2018-10-21] MEDS: HEPARIN SOD (PORCINE) 5,000 UNIT/ML VIAL SC SCH (08:02)
[2018-10-21] MEDS ORDERED: AZITHROMYCIN 250 MG TAB PO SCH (09:00)
[2018-10-21 12:09] VITALS: BP 119/55
--- NOTE | 2018-10-21 14:41 | NUR ---
TRANSPORTATION TO [facility] AT 4PM CALL FACILITY TO GIVE NURSE TO NURSE [phone]
[2018-10-21] MEDS ORDERED: HYDRALAZINE HCL 25 MG TAB PO SCH (15:30)
[2018-10-21 16:00] VITALS: BP 148/63
[2018-10-21] MEDS ORDERED: FUROSEMIDE 40 MG TAB PO SCH (18:00)
== END 2018-10-21 16:42 | disposition hospice, inpatient (51) | DRG 291 ==
LOC: ER 13:16 → EDBD 13:16 → ERHOLD 17:05 → ICU 21:07 → IMCU 10-18 23:07
PROVIDERS: ADMIT Internal Medicine; ATTEND Internal Medicine
DX: I11.0 Hypertensive heart disease with heart failure (principal); I50.21 Acute systolic (congestive) heart failure; I49.02 Ventricular flutter; N17.0 Acute kidney failure with tubular necrosis; I42.9 Cardiomyopathy, unspecified; R60.0 Localized edema; E78.5 Hyperlipidemia, unspecified; F41.9 Anxiety disorder, unspecified; J45.909 Unspecified asthma, uncomplicated; K76.1 Chronic passive congestion of liver; I48.0 Paroxysmal atrial fibrillation; I25.10 Atherosclerotic heart disease of native coronary artery without angina pectoris; I50.1 Left ventricular failure, unspecified; I25.5 Ischemic cardiomyopathy
CPT/HCPCS: 36415; 71045; 71046; 71260; 76700; 80048; 80053; 80061; 81001; 81015; 82248; 82550; 82553; 82570; 82805; 83605; 83690; 83735; 83880; 83935; 84100; 84300; 84439; 84443; 84484; 85025; 85379; 85610; 85730; 86160; 86803; 87040; 87086; 87400; 93005; 93306; 93307; 93312; 93325; 94660; 97139; 99284; J0360; J1644; J1650; J1940; J2270; Q9967